=== PATIENT | male | born 2000 | race Caucasian/White ===

== ENCOUNTER 2018-04-17 04:29 | Emergency (ER) | payer SELFPAY ==
[~2018-04-17 04:29] MED LIST: AUG875 PO; CEP250 PO; CETI5TAB22 PO; IBUP-1618 PO; IBUP800T37 PO; [UNRECOGNIZED DRUG - CODE] PO; [UNRECOGNIZED DRUG - OTHER] PO
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
--- NOTE | 2018-04-17 05:50 | RADIOLOGY IMAGING REPORT ---
FACILITY: [facility] [place] PATIENT NAME: Arron Ann : 2000 MR: [id number] V: [id number] EXAM DATE: ORDERING PHYSICIAN: MARTA CAMARGO TECHNOLOGIST: Location: [facility] [place] Patient: Arron Ann : 2000 Visit/Account:[id number] Date of Sevice: 04/17/2018 CT facial bones Indication: Trauma to the nose. Comparison: Head CT 05/30/2011. Technique: Axial CT images are obtained through the facial bones. Reformatted coronal and sagittal im ages were reviewed. One of the following dose optimization techniques was utilized in the performance of this exam: Autom ated exposure control; adjustment of the mA and/or kV according to the patient's size; or use of an i terative reconstruction technique. Specific details can be referenced in the facility's radiology C T exam operational policy. FINDINGS: There appears to be a mildly displaced fracture of the nasal bones with leftward deviation. Globes and orbits are grossly normal. Paranasal sinuses and mastoid air spaces are clear. The imaged intracranial contents are unremarkable. The imaged upper cervical spine is unremarkable. IMPRESSION: Mildly displaced nasal fractures with leftward deviation, suspected to be acute. No kevin tional acute abnormality. Report Dictated By: Naldo Philip MD at 04/17/2018 5:36 AM Report E-Signed By: Naldo Philip MD at 04/17/2018 5:47 AM WSN:[id number]
[2018-04-17 06:02] VITALS: BP 115/88
== END 2018-04-17 06:03 ==
LOC: ER 04:39
DX: Z02.89 Encounter for other administrative examinations (principal); S02.2XXA Fracture of nasal bones, initial encounter for closed fracture; W22.8XXA Striking against or struck by other objects, initial encounter; F10.129 Alcohol abuse with intoxication, unspecified
CPT/HCPCS: 70486; 99284